=== PATIENT | female | born 1975 | race Caucasian/White ===

== ENCOUNTER 2017-06-20 08:41 | Day surgery (SDC) | payer MEDICARE, OTHER, SELFPAY ==
[2017-06-19 15:17] VITALS: BMI 26.9
[2017-06-20 09:07] VITALS: BP 122/59; PULSE 75; RESP 18; TEMP 36.4; O2SAT 98
[2017-06-20 09:12] LABS: Urine Pregnancy, HCG Qual. Negative (Negative)
--- NOTE | 2017-06-20 09:37 | P.PN_ITS ---
[facility] Anesthesia Checklist - Structural Data Admitted From: Home Planned Operative Procedure/s: colonoscopy Consent for Planned Operative Procedure(s) Verified: Yes Verified Documents: Surgical Consent - Airway Assessment C-Spine Mobility Assessed: Yes TMJ Mobility Assessed: Yes Dentition: Good Dentition - Neurological Assessment Level of Consciousness: Awake, Alert - Anesthesia Plan Anesthesia Risk discussed: Yes Anesthesia Plan: Verified ASA Class: II Anesthesia Type: MAC [facility] Anesthesia HX I have reviewed the patient's past medical history: Yes Medical History: Reports:: Lung Disease (emphysema) Denies:: Diabetes Mellitus Type 1, Diabetes Mellitus Type 2, Internal Pacemaker, Seizures Other Surgeries: No: Pacemaker
[2017-06-20 10:48] VITALS: O2SAT 98
[2017-06-20 11:21] VITALS: BP 90/39; PULSE 64; RESP 20; TEMP 36.3; O2SAT 98
--- NOTE | 2017-06-20 11:25 | P.PCN_ITS ---
- Procedure: Date: 06/20/17 Procedure Performed:: Total colonoscopy to terminal ileum with polypectomy Indications:: 42-year-old white female. [place] resident. Referred by Dr. Bal for rectal bleeding and possible hemorrhoids. No evidence of any external hemorrhoids on examination. She did have a prior colonoscopy about 6 years ago in [place]. Plan was made for colonoscopy. Performing Provider:: Malick Tan MD Referring Provider:: Valeriano Sedation:: Propofol Procedure:: Patient was taken to same-day surgery endoscopy procedure room. Adequate intravenous sedation was achieved. Variable stiffness Olympus colonoscope was inserted via the anus and advanced to the cecum without significant difficulty. Ileocecal valve and appendiceal orifice were clearly identified. Colonoscope was advanced into the terminal ileum which appeared grossly normal. Colonoscope was withdrawn through the colon with careful surveillance. There was a diminutive subtle ridge polyp in the descending colon removed with cold snare followed by cold biopsy forceps. Within the sigmoid colon there is a very subtle appearing polyp removed well. Within the rectum there is some mild proctitis but this appeared to be minimal and likely secondary to bowel preparation. Retroflexion revealed nonbleeding internal hemorrhoids which appeared to be rather nonpathologic at this time. Colonoscope was withdrawn. Findings:: Internal hemorrhoids Subtle small diminutive polyps Faint minuscule proctitis Recommendations:: Likely repeat colonoscopy in 5 years. Bleeding which has been ongoing for about 3 years may be secondary to intermittent hemorrhoid flare up which would likely be amenable to fiber and occasional suppositories. Complications:: None Estimated blood obtained (mL): 3
[2017-06-20 11:31] VITALS: BP 107/66; PULSE 64; RESP 20; TEMP 36.3; O2SAT 99
[2017-06-20 11:41] VITALS: BP 116/68; PULSE 72; RESP 20; TEMP 36.3; O2SAT 98
[2017-06-20 11:52] VITALS: BP 104/73; PULSE 72; RESP 20; TEMP 36.3; O2SAT 98
== END 2017-06-20 11:52 | disposition home or self-care (01) ==
PROVIDERS: PCP Emergency Medicine; Visit Provider Surgery
PROC: 0DJD8ZZ Inspection of Lower Intestinal Tract, Via Natural or Artificial Opening Endoscopic (ICD-10-PCS; principal; 2017-06-20 09:05)
DX: K63.5 Polyp of colon (principal); K64.0 First degree hemorrhoids; K62.89 Other specified diseases of anus and rectum
CPT/HCPCS: 45380; 81025; 88305

== ENCOUNTER → 2017-06-22 09:15 | Outpatient (CLI) | payer MEDICARE, OTHER, SELFPAY ==
--- NOTE | 2017-06-22 09:16 | XR_ITS ---
Right Weightbearing Ankle 3 views. HISTORY: Pain, fracture/dislocation ORDERING PHYSICIAN: Samantha Baum DPM PATIENT AGE: 42 years COMPARISON: None FINDINGS: No fracture or dislocation. No lytic or blastic change. There is normal mineralization.. The joint spaces are well-preserved. No significant degenerative/arthritic changes. No erosive changes evident. There are mild hypertrophic changes along the anterior distal tibia IMPRESSION: 1. No acute finding. 2. Mild spurring along the anterior distal tibia
== END ==
PROVIDERS: Visit Provider Podiatrist
DX: T14.8XXA Other injury of unspecified body region, initial encounter (principal); S93.491A Sprain of other ligament of right ankle, initial encounter; S82.831A Other fracture of upper and lower end of right fibula, initial encounter for closed fracture; M25.571 Pain in right ankle and joints of right foot
CPT/HCPCS: 73610

== ENCOUNTER → 2017-07-20 11:44 | Outpatient (CLI) | payer MEDICARE, MEDICAID, SELFPAY ==
--- NOTE | 2017-07-20 11:45 | XR_ITS ---
XR ankle wt bearing RT min 3V CLINICAL INDICATION: Medial ankle pain ORDERING PHYSICIAN: Samantha Baum DPM PATIENT AGE: 42 years COMPARISON: 06/22/2017 FINDINGS: There remains spurring along the anterior aspect of the distal tibia and along the neck of the talus anteriorly. The ankle joint space is well-preserved. No acute fracture or dislocation. IMPRESSION: Overall no change spurring of the anterior distal tibia with no acute finding
== END ==
PROVIDERS: Visit Provider Podiatrist
DX: M25.571 Pain in right ankle and joints of right foot (principal)
CPT/HCPCS: 73610

== ENCOUNTER → 2018-07-18 10:50 | Outpatient (CLI) | payer MEDICARE, OTHER, SELFPAY ==
[2018-07-18 13:19] LABS: Free Thyroxine Index 2.9 ug/dL (5.93-13.13); T4 (Thyroxine) 8.4 ug/dl (4.7-13.3); Thyroid Stimulating Hormone 0.37 uIU/ml (0.358-3.740); Triiodothryronine (T3) Uptake 34 % (31-39)
[2018-07-19 09:22] LABS: Estradiol 13.1 pg/mL (.); FSH 35.5 mIU/mL (.); LH 10.2 mIU/mL (.)
== END ==
PROVIDERS: Visit Provider Nurse Practitioner Obstetrics & Gynecology
DX: Z01.419 Encounter for gynecological examination (general) (routine) without abnormal findings (principal); E03.9 Hypothyroidism, unspecified
CPT/HCPCS: 36415; 82670; 83001; 83002; 84436; 84443; 84479

== ENCOUNTER → 2018-08-08 09:54 | Outpatient (CLI) | payer MEDICARE, OTHER, SELFPAY ==
--- NOTE | 2018-08-08 09:56 | MM_ITS ---
MM Dig screening mamm BI w/CAD CAD Screening COMPARISON: None, this is baseline INDICATION: There is no personal or family history of breast cancer TECHNIQUE: Standard CC and MLO images were obtained. R2 CAD reviewed. FINDINGS: Moderate diffuse fibroglandular densities are seen in both breast slightly more prominent right breast than left. There are couple benign-appearing microcalcifications left breast. There is no suspicious lesion and there are no suspicious microcalcifications. IMPRESSION: Moderate breast density with no suspicious lesion seen BI-RADS Category: 2 Benign Finding(s) RECOMMENDED FOLLOW-UP: 1YR - 1 YEAR FOLLOW-UP (A letter has been sent to the patient regarding results of the study.)
== END ==
PROVIDERS: PCP Emergency Medicine; Visit Provider Nurse Practitioner Obstetrics & Gynecology
DX: Z12.31 Encounter for screening mammogram for malignant neoplasm of breast (principal)
CPT/HCPCS: 77067

== ENCOUNTER 2021-01-18 09:32 | Emergency (ER) | payer MEDICARE, MEDICAID, SELFPAY ==
[2021-01-18 09:34] VITALS: BP 128/76; PULSE 115; RESP 20; TEMP 36.5; O2SAT 94; BMI 35.2
--- NOTE | 2021-01-18 09:38 | XR_ITS ---
PROCEDURE: XR CHEST PORTABLE CLINICAL HISTORY: cough Dyspnea, COVID positive COMPARISON: CR XR CHEST 2V from 11/30/2018 FINDINGS: The study is limited due to attenuation of x-ray beam by generous overlying soft tissues. Cardiomediastinal silhouette is not enlarged. There is no definite pleural fluid. Mediastinal structures are midline. Osseous structures and soft tissues to the extent visualized appear unremarkable. The lungs are clear without infiltrates, suspicious nodules, or pleural effusions. No acute bony abnormalities. IMPRESSION: No definite acute findings though study is limited by magnitude of overlying soft tissues. Dictated by: Toyin Del Valle MD 01/18/2021 14:37 Toyin Del Valle MD in [place] 01/18/2021 14:37
[2021-01-18 09:46] LABS: Coronavirus 19, PCR Not Detected (NotDetected); Influenza A, PCR Not Detected (NotDetected); Influenza B, PCR Not Detected (NotDetected)
--- NOTE | 2021-01-18 10:02 | HMH.EDGENADL ---
ED Disposition Clinical Impression: Gastroenteritis UTI (urinary tract infection) Qualifiers: Urinary tract infection type: acute cystitis Hematuria presence: with hematuria Qualified Code(s): N30.01 - Acute cystitis with hematuria Disposition: Home, Self-Care Condition on Discharge: Good Instructions: Urinary Tract Infection Prescriptions: Nitrofurantoin Monohyd/M-Cryst [Macrobid 100 mg Capsule] 100 mg PO BID 10 Days #20 cap Transmission Status: Pending to [facility] Referrals: Mani Bal MD [Primary Care Provider] - - Critical Care Critical Care Time: No Attestation: On 01/18/21, the high probability of a clinically significant, sudden or life threatening deterioration of the following system(s) required my full and direct attention, intervention and personal management. The time I documented below is in addition to time spent performing reported procedures but includes the following listed in this critical care notation. Medical Decision Making - Medical Records Medical records reviewed: Yes: I reviewed the patient's medical records. - Jayy Inquiry Pt receiving controlled substance: No Vital Signs: 01/18/21 09:34 01/18/21 10:31 Temperature 97.7 F Temperature Source Oral Pulse Rate 93 H Pulse Rate [Left Radial] 115 H Respiratory Rate 20 Blood Pressure 113/75 Blood Pressure [Right Arm] 128/76 Blood Pressure Mean 86 Blood Pressure Mean [Right Arm] 93 Blood Pressure Source [Right Arm] Automatic Cuff Blood Pressure Position [Right Arm] Sitting 02 Sat by Pulse Oximetry 94 L 93 L Oxygen Delivery Method Room Air - Lab Data Lab Results 01/18/21 09:40: SARS-CoV-2 (PCR) Not detected, Influenza A Untype (PCR) Not detected, Influenza Type B (PCR) Not detected 01/18/21 10:05: WBC 10.2, RBC 4.56, Hgb 14.4, Hct 43.8, MCV 96.0, MCH 31.5 H, MCHC 32.8, RDW 14.2, Plt Count 287, MPV 8.9, Neut % (Auto) 69.8, Lymph % (Auto) 21.5, [place] % (Auto) 5.3, Eos % (Auto) 1.5, Baso % (Auto) 2.0, Neut # (Auto) 7.1, Lymph # (Auto) 2.2, [place] # (Auto) 0.5, Eos # (Auto) 0.2, Baso # (Auto) 0.2 01/18/21 10:05: Sodium 138, Potassium 4.0, Chloride 98, Carbon Dioxide 30, Anion Gap 14.0, BUN 6 L, Creatinine 0.60, Estimated Creat Clear 176, Estimated GFR 107, Est GFR ( Amer) 130, Glucose 324 H, Calcium 9.2, Total Bilirubin 0.3, AST 25, ALT 24, Alkaline Phosphatase 132 H, Total Protein 7.2, Albumin 3.8, Globulin 3.4 H, Albumin/Globulin Ratio 1.1 01/18/21 10:05: Lipase 36 01/18/21 12:30: Urine Color Yellow, Urine Appearance Clear, Urine pH 7.5, Ur Specific [place] 1.015, Urine Protein Negative, Urine Glucose (UA) 3+, Urine Ketones Negative, Urine Blood 1+, Urine Nitrate Negative, Urine Bilirubin Negative, Urine Urobilinogen 0.2, Ur Leukocyte Esterase 2+ A, Urine RBC Occasional, Urine WBC 5-10, Ur Squamous Epith Cells None, Urine Bacteria Trace Result diagrams: 01/18/21 10:05 01/18/21 10:05 Orders (Tests/Meds): ED MEDICATIONS Discontinued Medications Generic Name Dose Route Start Last Admin Trade Name Freq PRN Reason Stop Dose Admin Diphenhydramine HCl 25 mg 01/18/21 09:38 01/18/21 09:52 Diphenhydramine 50mg/Ml Vial IV 01/18/21 09:39 25 mg ONCE ONE Administration Sodium Chloride 1,000 mls @ 999 mls/hr 01/18/21 09:45 01/18/21 09:52 Sod Chlor 0.9% 1000ml Bag IV 01/18/21 10:45 999 mls/hr .Q1H1M ANTONIO Administration Ondansetron HCl 4 mg 01/18/21 09:38 01/18/21 09:52 Ondansetron 4mg/2ml Vial IV 01/18/21 09:39 4 mg ONCE ONE Administration ORDERS Category Date Time Status XR chest portable Stat Exams 01/18/21 09:38 Taken Urine Culture Stat Micro 01/18/21 12:30 Received - Radiology Data #1 Image(s): Chest Image Reviewed: Yes I reviewed the patient's radiology results, Yes I reviewed the patient's radiology image Preliminary Findings: Normal/NAD - Reevaluation(s) Time: 12:59 Reevaluation #1: On reevaluation, the patient is feeling better. Hemod
[2021-01-18 10:16] LABS: Basophils # 0.2 K/mm3 (0-0.2); Eosinophils # 0.2 K/mm3 (0.0-0.4); Eosinophils % 1.5 % (0.1-12.0); Hematocrit 43.8 % (37.0-47.0); Hemoglobin 14.4 g/dL (12.2-16.2); Lymphocytes # 2.2 K/mm3 (0.7-4.5); Lymphocytes % 21.5 % (10-50); Mean Corpuscular HGB Conc 32.8 g/dL (31.8-35.4); Mean Corpuscular Hemoglobin 31.5 pg (27.0-31.2); Mean Platelet Volume 8.9 fl (7.4-10.4); Monocytes # 0.5 K/mm3 (0.1-1.0); Monocytes % 5.3 % (1.7-9.3); Neutrophils # 7.1 K/mm3 (1.8-7.8); Neutrophils % 69.8 % (37.0-80.0); Platelet Count 287 K/mm3 (142-424); Red Blood Count 4.56 M/mm3 (4.20-5.40); Red Cell Distribution Width 14.2 % (11.5-17.5); White Blood Count 10.2 K/mm3 (4.8-10.8)
[2021-01-18 10:20] LABS: Chloride 98 mmol/L (98-107); Sodium 138 mmol/L (136-145)
[2021-01-18 10:23] LABS: Alanine Aminotransferase 24 U/L (12-78); Albumin Level 3.8 g/dl (3.5-5.0); Albumin/Globulin Ratio 1.1 (1.1-1.8); Alkaline Phosphatase 132 U/L (38-126); Aspartate Amino Transferase 25 U/L (14-36); Bilirubin,Total 0.3 mg/dl (0.2-1.3); Blood Urea Nitrogen 6 mg/dl (7-17); Carbon Dioxide 30 mmol/L (22.0-30.0); Creatinine Clearance Estimated 176 mL/min (50-200); Estimated Glomerular Filt Rate 107 ml/min (>60); GFR (African American) 130 ML/MIN (>60); Globulin 3.4 g/dL (1.3-3.2); Total Protein,Serum 7.2 g/dl (6.3-8.2)
[2021-01-18 10:24] LABS: Calcium 9.2 mg/dl (8.4-10.2); Glucose 324 mg/dl (74-100); Lipase 36 U/L (23-300)
[2021-01-18 10:31] VITALS: BP 113/75; PULSE 93; O2SAT 93
[2021-01-18 11:01] VITALS: BP 99/60; PULSE 83; O2SAT 95
[2021-01-18 11:31] VITALS: BP 126/78; PULSE 85; O2SAT 94
[2021-01-18 12:01] VITALS: BP 119/59; PULSE 86; O2SAT 93
[2021-01-18 12:37] LABS: Microscopic, Urine URINE MICROSCOPIC (MICROSCOPIC)
[2021-01-18 12:39] LABS: Appearance,Urine CLEAR (Clear); Bilirubin,Urine Negative (Negative); Blood, Urine 1+ (Negative); Color,Urine YELLOW (Yellow); Glucose,Urine (UA) 3+ (Negative); Ketones,Urine Negative (Negative); Leukocyte Esterase,Urine 2+ (Negative); Nitrate,Urine Negative (Negative); PH,Urine 7.5 (5.0-8.5); Protein,Urine Negative (Negative); Specific Gravity, Urine 1.015 (1.005-1.030); Urobilinogen,Urine 0.2 EU/dl (0.2)
[2021-01-18 12:55] LABS: Bacteria,Urine Trace /lpf; RBC,Urine Occasional #/hpf (0-3)
[2021-01-18 13:19] VITALS: BP 119/59; PULSE 86; RESP 16; TEMP 36.5; O2SAT 93
== END 2021-01-18 13:23 | disposition home or self-care (01) ==
PROVIDERS: Emergency Provider Emergency Medicine; PCP Emergency Medicine
DX: N30.01 Acute cystitis with hematuria (principal); K52.9 Noninfective gastroenteritis and colitis, unspecified; F41.8 Other specified anxiety disorders; E03.9 Hypothyroidism, unspecified; F17.210 Nicotine dependence, cigarettes, uncomplicated; Z20.822 Contact with and (suspected) exposure to COVID-19
CPT/HCPCS: 71045; 80053; 81001; 83690; 85025; 87086; 96365; 96375; 99283; C9803; J2405; U0003; U0005

== ENCOUNTER → 2022-01-01 09:12 | Outpatient (CLI) | payer MEDICARE, MEDICAID, SELFPAY ==
[2022-01-01 09:27] LABS: Adenovirus F 40/41, stool Not Detected (NotDetected); Astrovirus Not Detected (NotDetected); Campylobacter Not Detected (NotDetected); Clostridium Difficile A/B, PCR Not Detected (NotDetected); Cryptosporidium Not Detected (NotDetected); Cyclospora Cayetanesis Not Detected (NotDetected); Entamoeba histolytica Not Detected (NotDetected); Enteroaggregative E coli Not Detected (NotDetected); Enteropathogenic E coli Not Detected (NotDetected); Enterotoxigenic E coli Not Detected (NotDetected); Giardia lamblia Not Detected (NotDetected); Norovirus Not Detected (NotDetected); Plesimonas Shigalloides, PCR Not Detected (NotDetected); Rotavirus A Not Detected (NotDetected); Salmonella, PCR Not Detected (NotDetected); Sapovirus Not Detected (NotDetected); Shiga-like toxin E coli Not Detected (NotDetected); Shigella Enterovasive E coli Not Detected (NotDetected); Vibrio Cholerae Not Detected (NotDetected); Vibrio, PCR Not Detected (NotDetected); Yersinia Entercolitica, PCR Not Detected (NotDetected)
== END ==
PROVIDERS: PCP Emergency Medicine; Visit Provider Emergency Medicine
DX: R19.7 Diarrhea, unspecified (principal)
CPT/HCPCS: 87506

== ENCOUNTER → 2022-01-01 11:08 | Outpatient (CLI) | payer MEDICARE, MEDICAID, SELFPAY ==
[2022-01-01 13:18] LABS: Basophils # 0.2 K/mm3 (0-0.2); Basophils % 1.6 % (0.1-2.0); Eosinophils # 0.5 K/mm3 (0.0-0.4); Eosinophils % 5.1 % (0.1-12.0); Hematocrit 41.5 % (37.0-47.0); Hemoglobin 13.5 g/dL (12.2-16.2); Lymphocytes # 3.4 K/mm3 (0.7-4.5); Lymphocytes % 32.7 % (10-50); Mean Corpuscular HGB Conc 32.6 g/dL (31.8-35.4); Mean Corpuscular Hemoglobin 30.2 pg (27.0-31.2); Mean Corpuscular Volume 92.7 fl (81-99); Mean Platelet Volume 8.4 fl (7.4-10.4); Monocytes # 0.7 K/mm3 (0.1-1.0); Monocytes % 6.9 % (1.7-9.3); Neutrophils # 5.5 K/mm3 (1.8-7.8); Neutrophils % 53.6 % (37.0-80.0); Platelet Count 245 K/mm3 (142-424); Red Blood Count 4.48 M/mm3 (4.20-5.40); Red Cell Distribution Width 13.6 % (11.5-17.5); White Blood Count 10.3 K/mm3 (4.8-10.8)
[2022-01-01 13:28] LABS: Albumin Level 3.8 g/dl (3.5-5.0); Albumin/Globulin Ratio 1.4 (1.1-1.8); Anion Gap 15.8 mEq/L (5-15); Blood Urea Nitrogen 5 mg/dl (7-17); Carbon Dioxide 29 mmol/L (22.0-30.0); Chloride 98 mmol/L (98-107); Cholesterol 161 mg/dl (140-200); Globulin 2.8 g/dL (1.3-3.2); Glucose 160 mg/dl (74-100); Potassium 3.8 mmoL/L (3.5-5.1); Sodium 139 mmol/L (136-145); Total Protein,Serum 6.6 g/dl (6.3-8.2); Triglycerides 250 mg/dl (30-150); VLDL Cholesterol 50 mg/dL (0-40)
[2022-01-01 13:29] LABS: Alanine Aminotransferase 32 U/L (12-78); Alkaline Phosphatase 139 U/L (38-126); Aspartate Amino Transferase 32 U/L (14-36); Bilirubin,Total 0.2 mg/dl (0.2-1.3); Calcium 8.9 mg/dl (8.4-10.2); Chol/HDL Ratio 4.5 (1-3.5); Estimated Glomerular Filt Rate 89 ml/min (>60); GFR (African American) 108 ML/MIN (>60); HDL Cholesterol 36 mg/dl (40-60)
[2022-01-01 13:39] LABS: Direct LDL Cholesterol 90.49 mg/dL (100-129)
[2022-01-01 14:00] LABS: Thyroid Stimulating Hormone 3.51 uIU/mL (0.465-4.68)
[2022-01-04 13:02] LABS: Free Valproic Acid (Depakote) 31.8
== END ==
PROVIDERS: PCP Emergency Medicine; Visit Provider Emergency Medicine
DX: F31.0 Bipolar disorder, current episode hypomanic (principal); R19.7 Diarrhea, unspecified
CPT/HCPCS: 36415; 80053; 80061; 80165; 84443; 85025; 87506

== ENCOUNTER → 2023-03-06 15:57 | Outpatient (CLI) | payer MEDICARE, MEDICAID, SELFPAY ==
--- NOTE | 2023-03-06 15:58 | MM_ITS ---
PROCEDURE INFORMATION: Exam: Bilateral Screening 3D Mammography Exam date and time: 03/06/2023 3:50 PM Age: 47 years old Clinical indication: Screening examination TECHNIQUE: Imaging protocol: Bilateral Screening tomosynthesis and 2D mammography including computer-aided detection (CAD) when performed. COMPARISON: DIG MAMM-SCREEN SHANAE 08/08/2018 10:04 AM FINDINGS: MAMMOGRAPHY: Breast composition: There are scattered areas of fibroglandular density. Mass: None. Architectural distortion: None. Calcifications: No suspicious calcifications. Asymmetric density: None. Skin thickening: None. Axillary adenopathy: None. IMPRESSION: No mammographic evidence of malignancy. Annual screening is recommended unless otherwise clinically indicated. ASSESSMENT: BI-RADS Category 1: Negative
== END ==
PROVIDERS: PCP Emergency Medicine; Visit Provider Emergency Medicine
DX: Z12.31 Encounter for screening mammogram for malignant neoplasm of breast (principal)
CPT/HCPCS: 77063; 77067

== ENCOUNTER 2024-07-25 12:54 | Outpatient (CLI) | payer MEDICARE, MEDICAID, SELFPAY ==
--- NOTE | 2024-07-25 13:01 | MM_ITS ---
PROCEDURE INFORMATION: Exam: MG Bilateral Screening 3D Mammography Exam date and time: 07/25/2024 1:08 PM Age: 49 years old Clinical indication: Screening examination TECHNIQUE: Imaging protocol: Bilateral Screening tomosynthesis and 2D mammography including computer-aided detection (CAD) when performed. COMPARISON: 1. MG MM DIG SCREENING MAMM BI W/CAD 03/06/2023 3:50 PM 2. MG DIG MAMM-SCREEN SHANAE 08/08/2018 10:04 AM FINDINGS: MAMMOGRAPHY: Breast composition: There are scattered areas of fibroglandular density. Mass: None. Architectural distortion: None. Calcifications: No suspicious calcifications. Asymmetric density: None. Skin thickening: None. Axillary adenopathy: None. IMPRESSION: No mammographic evidence of malignancy. Annual screening is recommended unless otherwise clinically indicated. ASSESSMENT: BI-RADS Category 1: Negative.
== END 2024-07-25 23:59 | disposition home or self-care (01) ==
LOC: RAD 12:56
PROVIDERS: Visit Provider Nurse Practitioner Family
DX: Z12.31 Encounter for screening mammogram for malignant neoplasm of breast (principal)
CPT/HCPCS: 77063; 77067

== ENCOUNTER 2024-12-25 22:36 | Emergency (ER) | payer MEDICARE, MEDICAID, SELFPAY ==
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
[2024-12-25 22:14] VITALS: BP 103/59; PULSE 100; RESP 18; TEMP 36.7; O2SAT 94; BMI 26.6
--- NOTE | 2024-12-25 22:24 | HMH.EDGENADL ---
Discharge Plan Disposition Patient Disposition: Home, Self-Care Prescriptions Prescriptions: No Action hydrocortisone acetate 25 mg suppository 25 mg LA BID Qty: 24 3RF hydrocortisone 1 % cream with perineal applicator 1 applic LA BID Qty: 28.4 3RF atorvastatin 20 mg tablet 20 mg PO ONCE bupropion HCl 150 mg tablet extended release 24 hr 150 mg PO DAILY divalproex 500 mg tablet,delayed release (DR/EC) 500 mg PO TID famotidine 20 mg tablet 20 mg PO DAILY polyethylene glycol 3350 [Gavilax] 17 gram/dose powder 17 g PO DAILY haloperidol 5 mg tablet 5 mg PO BID Invega Sustenna 234 mg/1.5 mL syringe 234 mg IM Q30D levothyroxine 200 mcg capsule 200 mcg PO DAILY quetiapine 200 mg tablet 200 mg PO DAILY quetiapine 50 mg tablet 50 mg PO DAILY prazosin 2 mg capsule 2 mg PO HS quetiapine 200 mg tablet 200 mg PO HS oxybutynin chloride 10 mg tablet extended release 24hr 10 mg PO DAILY mirtazapine 30 mg tablet 30 mg PO HS mirtazapine 30 MG tablet 30 mg PO HS PRN (Reason: Insomnia) nitrofurantoin monohyd/m-cryst 100 MG capsule 100 mg PO BID 10 Days Qty: 20 0RF Referrals Follow up/Referrals: Provider,Referral, MD [Primary Care Provider, Medical] - See instructions Activity Restrictions/Add. Instructions Additional Instructions/Restrictions: No evidence of abnormality noted on extensive ER workup. Clinical Impressions Clinical Impression: AMS (altered mental status) Qualifiers: Altered mental status type: somnolence Qualified Code(s): R40.0 - Somnolence Instructions Patient Instructions: DI for Altered Mental Status Print Language Print Language: Angolan Discharge ED Provider: Donny Baron General Adult HPI <Dorota Salazar DO - Last Filed: 12/26/24 01:49> General Chief complaint: Altered Mental Status Stated complaint: Altered Mental Status Time Seen by Provider: 12/25/24 22:44 Mode of Arrival: EMS Source of Information: EMS Description of Symptoms (Recalled from ER Triage Doc. by RN): [facility] states she took her night meds which included 2 Visteril and 1 Klonopin at 1999. She became altered, staff called EMS. Pt is very lethargic, EMS used sternal rub and ammonia to arrouse at scene. She was 89% on scene no daily oxygen used, placed on 2l/nc History of Present Illness HPI narrative: Patient is a 49-year-old female with medical problems that include high cholesterol, psychiatric medical problems who presents to the emergency department with altered mental status. Patient arrives from [facility] and was told that she was given Klonopin and 2 Vistaril before bed and patient became altered and called EMS. Per [facility], patient typically does only take 1 Vistaril at night but requested two. Patient became more altered was unable to respond to questions and was not responsive to sternal rub therefore she was sent here. On arrival, patient was newly hypoxic, borderline hypotensive patient was placed on 4 L nasal cannula. On arrival, patient was unable to tell me her name or any of her medical problems. Patient was alert to sternal rub but would quickly fall back asleep. Related Data Home Medications ?Medication ?Instructions ?Recorded ?Confirmed atorvastatin 20 mg tablet 20 mg PO ONCE Cholesterol 06/12/17 03/02/21 mirtazapine 30 mg tablet 30 mg PO HS PRN Insomnia 11/30/18 03/02/21 bupropion HCl 150 mg 24 hr tablet, 150 mg PO DAILY 01/05/21 03/02/21 extended release divalproex 500 mg tablet,delayed 500 mg PO TID 01/05/21 03/02/21 release famotidine 20 mg tablet 20 mg PO DAILY 01/05/21 03/02/21 haloperidol 5 mg tablet 5 mg PO BID 01/05/21 03/02/21 levothyroxine 200 mcg capsule 200 mcg PO DAILY 01/05/21 03/02/21 paliperidone palmitate 234 mg/1.5 234 mg IM Q30D 01/05/21 03/02/21 mL intramuscular syringe (Invega Sustenna) polyethylene glycol 3350 17 17 g PO DAILY 01/05/21 03/02/21 gram/dose oral powder (Gavilax) quetiapine 200 mg tablet 200 mg PO DAILY 01/05/21 03/02/21 quetiapine 50 mg tablet 50 mg PO DAILY 01/05/21 03/02/21 mirtazapine 30 mg tablet 30 mg PO HS 03/02/21 03/02/21 oxybutynin chloride 10 mg 10 mg PO DAILY 03/02/21 03/02/21 tablet,extended release 24 hr prazosin 2 mg capsule 2 mg PO HS 03/02/21 03/02/21 quetiapine 200 mg tablet 200 mg PO HS 03/02/21 03/02/21 Previous Rx's ?Medication ?Instructions ?Recorded hydrocortisone 1 % topical cream 1 applic LA BID #28.4 grams 04/19/19 with perineal applicator hydrocortisone acetate 25 mg 25 mg LA BID #24 ea 04/19/19 rectal suppository nitrofurantoin 100 mg PO BID 10 days #20 caps 01/18/21 monohydrate/macrocrystals 100 mg capsule Allergies Allergy/AdvReac Type Severity Reaction Status Date / Time codeine Allergy Intermediate Hives Verified 03/02/21 09:35 hydrocodone Allergy Unknown Verified 03/02/21 09:35 Penicillins Allergy Unknown Verified 03/02/21 09:35 codiene Allergy Unknown Uncoded 03/02/21 09:35 [facility] <Dorota Salazar DO - Last Filed: 12/26/24 01:49> [facility] Disclaimer: The information contained in this section may have been updated after the patient was seen, as this information can be updated by other users. Social History (System 09/26/17 @ 09:45 by Alessandra Koch) Smoking Status: Unknown if ever smoked alcohol intake: never substance use type: denies use current occupational status: disabled Travel in the last 8 weeks?: None household members: caregiver housing: assisted living facility caffeine: Yes Have you lived/traveled outside US in past 30 days?: No Contact w/someone who lives/traveled outside US past 30 days?: No Exposure to someone with infectious disease in past 14 days?: No Do you have a fever (greater than 100.4 F or 38 C)?: No Have you tested positive for COVID-19?: No Exposed to someone with COVID-19 in past 14 days?: No Do you have a sore throat?: No Do you have a cough?: No Do you have any weakness?: No Do you have any diarrhea?: No Are you experiencing any unusual bleeding?: No Do you have any muscle aches/pain?: No Do you have any abdominal pain?: No Are you experiencing loss of taste or smell?: No Other Medical History Have you received the Flu Vaccine for this season: No Have you received the Pneumonia Vaccine: Yes <Dorota Salazar, DO - Last Filed: 12/26/24 01:49> ROS Obtained: Yes All systems reviewed & no additional complaints except as documented and Yes Systems reviewed as appropriate & no additional complaints except as documented Physical Exam <Dorota Salazar, DO - Last Filed: 12/26/24 01:49> General General appearance: alert and in no apparent distress Head Head exam: atraumatic, normocephalic and normal inspection Eye Eye exam: Present normal appearance, PERRL, EOMI and other (pupils 3 mm and reactive bilaterally); Absent scleral icterus ENT ENT exam: Present normal exam and normal external ear exam Neck Neck exam: Present normal inspection and full ROM Chest Chest inspection: Present normal inspection and symmetric chest wall rise Respiratory Respiratory exam: Present normal lung sounds bilaterally; Absent respiratory distress or wheezes Cardiovascular Cardiovascular exam: Present regular rate, normal rhythm and normal heart sounds Abdominal Exam Abdominal exam: Present soft and distention; Absent tenderness, guarding or rebound Extremities Exam Extremities exam: Present normal inspection and full ROM Back Exam Back exam: Present normal inspection and full ROM Neurological Exam Neurological exam: Present alert and other (Patient was alert and oriented x 1, patient had no focal deficits was spontaneously moving all extremities) Psychiatric Psychiatric exam: Present normal affect and normal mood Skin Skin exam: Present warm and dry Medical Decision Making <Dorota MartinDO - Last Filed: 12/26/24 01:49> Medical Records Screening: Per USPSTF and CDC recommendations, given the prevalence of disease in our region, it is our hospital?s policy to screen for HIV and viral Hepatitis for all patients aged 18 and over and those with ongoing risk factors. Jayy Inquiry Pt receiving controlled substance: No Vital Signs: 12/25/24 22:14 12/25/24 22:30 12/26/24 07:10 Temperature 98.1 F 98 F Temperature Source Axillary Pulse Rate 100 H 92 H Pulse Rate [Left] 100 H Respiratory Rate 18 29 H 14 Blood Pressure 103/59 L 139/74 Blood Pressure [Right Arm] 103/59 L Blood Pressure Mean [Right Arm] 73 Blood Pressure Source Automatic Cuff Blood Pressure Source [Right Arm] Automatic Cuff Blood Pressure Position [Right Arm] Sitting 02 Sat by Pulse Oximetry 94 L 100 99 Oxygen Delivery Method Nasal Cannula Oxygen Flow Rate (LPM) 2 12/26/24 08:11 Temperature 98 F Temperature Source Pulse Rate 99 H Pulse Rate [Left] Respiratory Rate 16 Blood Pressure 142/77 H Blood Pressure [Right Arm] Blood Pressure Mean [Right Arm] Blood Pressure Source Blood Pressure Source [Right Arm] Blood Pressure Position [Right Arm] 02 Sat by Pulse Oximetry Oxygen Delivery Method Oxygen Flow Rate (LPM) Lab Data Lab results reviewed: Yes I reviewed the patient's lab results. Lab Results 12/25/24 00:05: VBG pH 7.39, VBG pCO2 40.6, VBG pO2 95.0 H, VBG HCO3 24.2, VBG Total CO2 25.4, VBG O2 Saturation 96.6 H, VBG Base Excess -0.7, VBG Lactic Acid 1.6 12/25/24 22:04: WBC 15.2 H, RBC 4.19 L, Hgb 12.0 L, Hct 36.7 L, MCV 87.6, MCH 28.6, MCHC 32.7, RDW 13.7, Plt Count 238, MPV 10.4, Neut % (Auto) 70.2, Lymph % (Auto) 19.2, [place] % (Auto) 7.9, Eos % (Auto) 1.1, Baso % (Auto) 0.5, Neut # (Auto) 10.7 H, Lymph # (Auto) 2.9, [place] # (Auto) 1.2 H, Eos # (Auto) 0.2, Baso # (Auto) 0.1, PT 11.5, INR 1.04, Sodium 136, Potassium 3.6, Chloride 102, Carbon Dioxide 24, Anion Gap 13.6, BUN 11, Creatinine 0.70, Estimated Creat Clear 109, Estimated GFR 88, Est GFR ( Amer) 107, Glucose 233 H, Calcium 8.9, Total Bilirubin 0.5, AST 21, ALT 29, Alkaline Phosphatase 136 H, Troponin I < 0.01, Total Protein 6.2 L, Albumin 3.6, Globulin 2.6, Albumin/Globulin Ratio 1.4, Lipase 38, Salicylates < 1.0 L, Acetaminophen < 10 L 12/26/24 00:05: Urine Color Yellow, Urine Appearance Clear, Urine pH 6.0, Ur Specific [place] 1.010, Urine Protein Negative, Urine Glucose (UA) 3+, Urine Ketones Negative, Urine Blood Negative, Urine Nitrate Negative, Urine Bilirubin Negative, Urine Urobilinogen 0.2, Ur Leukocyte Esterase Negative, Urine RBC None, Urine WBC None, Ur Squamous Epith Cells Occasional, Urine Bacteria None, Urine Opiates Screen Negative, Urine Methadone Screen Negative, Ur Barbituates Screen Negative, Ur Phencyclidine Scrn Negative, Ur Amphetamines Screen Negative, U Benzodiazepines Scrn Negative, Urine Cocaine Screen Negative, U Marijuana (THC) Screen Positive H 12/25/24 22:04 12/25/24 22:04 Orders (Tests/Meds): ED MEDICATIONS Discontinued Medications Generic Name Dose Route Start Last Admin Trade Name Freq PRN Reason Stop Dose Admin Sodium Chloride 1,000 mls @ 999 mls/hr 12/25/24 22:31 12/26/24 00:56 Sod Chlor 0.9% 1000ml Bag IV 12/25/24 23:31 Infused .Q1H1M ONE Infusion Iopamidol 70 ml 12/25/24 23:16 12/25/24 23:17 Iopamidol-370 (76%);100ml Bottle IV 12/25/24 23:17 70 ml ONCE ONE Administration Sodium Chloride 50 ml 12/25/24 23:16 12/25/24 23:17 0.9 % Sodium Chloride 50 Ml Vial IV 12/25/24 23:17 50 ml ONCE ONE Administration Sodium Chloride 10 ml 12/25/24 23:16 12/25/24 23:17 Sodium Chloride 0.9% 10ml Syr (Rad Only) IV 12/25/24 23:17 10 ml ONCE ONE Administration ORDERS Category Date Time Status CT abdomen pelvis w con Stat Cat Scan 12/25/24 22:[address] angio chest PE protocol Stat Cat Scan 12/25/24 22:[address] head/brain wo con Stat Cat Scan 12/25/24 22:31 Completed Acetaminophen Stat Lab 12/26/24 01:39 Completed CBC w/Auto Diff [Complete Blood Count Auto Diff] Stat Lab 12/25/24 22:04 Completed CMP [Comprehensive Metabolic Panel] Stat Lab 12/25/24 22:04 Completed Lipase Stat Lab 12/25/24 22:04 Completed Prothrombin Time INR Stat Lab 12/25/24 22:04 Completed Salicylate Stat Lab 12/26/24 01:39 Completed Trop I [Troponin I] Stat Lab 12/25/24 22:04 Completed UA [Urinalysis and Microscopic] Stat Lab 12/26/24 00:05 Completed UDS [Drug Screen,Urine] Stat Lab 12/26/24 00:05 Completed Blood Culture Stat Micro 12/26/24 00:05 Results VBG [Venous Blood Gas] Stat RT 12/25/24 00:05 Completed EKG Request [ECG Request] Stat Y 12/25/24 22:31 Ordered Medical Decision Narrative: Patient is a 49-year-old female who presented to the emergency department from [facility] with altered mental status. On arrival, patient was mildly tachycardic, afebrile, borderline hypotensive, mildly tachycardic. Differential includes but not limited to: Overdose, intracranial pathology, pulmonary embolism, intra-abdominal process, sepsis, amongst others. Patient's labs were reviewed and interpreted by myself: CBC showed leukocytosis of 15, hemoglobin was stable. INR was normal. CMP was unremarkable except for mildly elevated glucose. Initial troponin less than 0.01. Lipase was normal. UA showed no evidence of infection. EKG was reviewed and interpreted by myself and showed normal sinus rhythm at [address] or T wave changes concerning for ischemia no QTc prolongation. CT head was reviewed and interpreted by myself and showed no acute intracranial pathology. CT chest and CT abdomen reviewed and interpreted by myself and showed no acute pathology. Patient was given IV fluids. On further reassessment, patient was more alert patient was alert and oriented x 3 but still very sleepy quickly falling asleep after questions. Patient was signed out to the oncoming provider pending further reassessment and likely discharge home once awake and alert likely secondary to medications given just prior to arrival. <Donny Baron MD - Last Filed: 12/27/24 01:55> Vital Signs: 12/25/24 22:14 12/25/24 22:30 12/26/24 07:10 Temperature 98.1 F 98 F Temperature Source Axillary Pulse Rate 100 H 92 H Pulse Rate [Left] 100 H Respiratory Rate 18 29 H 14 Blood Pressure 103/59 L 139/74 Blood Pressure [Right Arm] 103/59 L Blood Pressure Mean [Right Arm] 73 Blood Pressure Source Automatic Cuff Blood Pressure Source [Right Arm] Automatic Cuff Blood Pressure Position [Right Arm] Sitting 02 Sat by Pulse Oximetry 94 L 100 99 Oxygen Delivery Method Nasal Cannula Oxygen Flow Rate (LPM) 2 12/26/24 08:11 Temperature 98 F Temperature Source Pulse Rate 99 H Pulse Rate [Left] Respiratory Rate 16 Blood Pressure 142/77 H Blood Pressure [Right Arm] Blood Pressure Mean [Right Arm] Blood Pressure Source Blood Pressure Source [Right Arm] Blood Pressure Position [Right Arm] 02 Sat by Pulse Oximetry Oxygen Delivery Method Oxygen Flow Rate (LPM) Lab Data Lab Results 12/25/24 00:05: VBG pH 7.39, VBG pCO2 40.6, VBG pO2 95.0 H, VBG HCO3 24.2, VBG Total CO2 25.4, VBG O2 Saturation 96.6 H, VBG Base Excess -0.7, VBG Lactic Acid 1.6 12/25/24 22:04: WBC 15.2 H, RBC 4.19 L, Hgb 12.0 L, Hct 36.7 L, MCV 87.6, MCH 28.6, MCHC 32.7, RDW 13.7, Plt Count 238, MPV 10.4, Neut % (Auto) 70.2, Lymph % (Auto) 19.2, [place] % (Auto) 7.9, Eos % (Auto) 1.1, Baso % (Auto) 0.5, Neut # (Auto) 10.7 H, Lymph # (Auto) 2.9, [place] # (Auto) 1.2 H, Eos # (Auto) 0.2, Baso # (Auto) 0.1, PT 11.5, INR 1.04, Sodium 136, Potassium 3.6, Chloride 102, Carbon Dioxide 24, Anion Gap 13.6, BUN 11, Creatinine 0.70, Estimated Creat Clear 109, Estimated GFR 88, Est GFR ( Amer) 107, Glucose 233 H, Calcium 8.9, Total Bilirubin 0.5, AST 21, ALT 29, Alkaline Phosphatase 136 H, Troponin I < 0.01, Total Protein 6.2 L, Albumin 3.6, Globulin 2.6, Albumin/Globulin Ratio 1.4, Lipase 38, Salicylates < 1.0 L, Acetaminophen < 10 L 12/26/24 00:05: Urine Color Yellow, Urine Appearance Clear, Urine pH 6.0, Ur Specific [place] 1.010, Urine Protein Negative, Urine Glucose (UA) 3+, Urine Ketones Negative, Urine Blood Negative, Urine Nitrate Negative, Urine Bilirubin Negative, Urine Urobilinogen 0.2, Ur Leukocyte Esterase Negative, Urine RBC None, Urine WBC None, Ur Squamous Epith Cells Occasional, Urine Bacteria None, Urine Opiates Screen Negative, Urine Methadone Screen Negative, Ur Barbituates Screen Negative, Ur Phencyclidine Scrn Negative, Ur Amphetamines Screen Negative, U Benzodiazepines Scrn Negative, Urine Cocaine Screen Negative, U Marijuana (THC) Screen Positive H Orders (Tests/Meds): ED MEDICATIONS Discontinued Medications Generic Name Dose Route Start Last Admin Trade Name Ori PRN Reason Stop Dose Admin Sodium Chloride 1,000 mls @ 999 mls/hr 12/25/24 22:31 12/26/24 00:56 Sod Chlor 0.9% 1000ml Bag IV 12/25/24 23:31 Infused .Q1H1M ONE Infusion Iopamidol 70 ml 12/25/24 23:16 12/25/24 23:17 Iopamidol-370 (76%);100ml Bottle IV 12/25/24 23:17 70 ml ONCE ONE Administration Sodium Chloride 50 ml 12/25/24 23:16 12/25/24 23:17 0.9 % Sodium Chloride 50 Ml Vial IV 12/25/24 23:17 50 ml ONCE ONE Administration Sodium Chloride 10 ml 12/25/24 23:16 12/25/24 23:17 Sodium Chloride 0.9% 10ml Syr (Rad Only) IV 12/25/24 23:17 10 ml ONCE ONE Administration ORDERS Category Date Time Status CT abdomen pelvis w con Stat Cat Scan 12/25/24 22:[address] angio chest PE protocol Stat Cat Scan 12/25/24 22:[address] head/brain wo con Stat Cat Scan 12/25/24 22:31 Completed Acetaminophen Stat Lab 12/26/24 01:39 Completed CBC w/Auto Diff [Complete Blood Count Auto Diff] Stat Lab 12/25/24 22:04 Completed CMP [Comprehensive Metabolic Panel] Stat Lab 12/25/24 22:04 Completed Lipase Stat Lab 12/25/24 22:04 Completed Prothrombin Time INR Stat Lab 12/25/24 22:04 Completed Salicylate Stat Lab 12/26/24 01:39 Completed Trop I [Troponin I] Stat Lab 12/25/24 22:04 Completed UA [Urinalysis and Microscopic] Stat Lab 12/26/24 00:05 Completed UDS [Drug Screen,Urine] Stat Lab 12/26/24 00:05 Completed Blood Culture Stat Micro 12/26/24 00:05 Results VBG [Venous Blood Gas] Stat RT 12/25/24 00:05 Completed EKG Request [ECG Request] Stat Y 12/25/24 22:31 Ordered Medical Decision Narrative: Patient is a 49-year-old female who presented to the emergency department from [facility] with altered mental status. On arrival, patient was mildly tachycardic, afebrile, borderline hypotensive, mildly tachycardic. Differential includes but not limited to: Overdose, intracranial pathology, pulmonary embolism, intra-abdominal process, sepsis, amongst others. Patient's labs were reviewed and interpreted by myself: CBC showed leukocytosis of 15, hemoglobin was stable. INR was normal. CMP was unremarkable except for mildly elevated glucose. Initial troponin less than 0.01. Lipase was normal. UA showed no evidence of infection. EKG was reviewed and interpreted by myself and showed normal sinus rhythm at [address] or T wave changes concerning for ischemia no QTc prolongation. CT head was reviewed and interpreted by myself and showed no acute intracranial pathology. CT chest and CT abdomen reviewed and interpreted by myself and showed no acute pathology. Patient was given IV fluids. On further reassessment, patient was more alert patient was alert and oriented x 3 but still very sleepy quickly falling asleep after questions. Patient was signed out to the oncoming provider pending further reassessment and likely discharge home once awake and alert likely secondary to medications given just prior to arrival. Tod HUANG: I assumed care of the patient at the time of handoff from the prior provider. After extensive period of observation, patient was able to wake up, eat drink, was neurologically normal and was ultimately discharged in stable condition. Presentation is most consistent with medication side effect from her nighttime medications. Critical Care <Dorota Salazar, DO - Last Filed: 12/26/24 01:49> Critical Care Time Critical Care Time: No
[2024-12-25 22:30] VITALS: BP 103/59; PULSE 100; RESP 29; O2SAT 100
--- NOTE | 2024-12-25 22:31 | CT_ITS ---
PROCEDURE INFORMATION: Exam: CT Head Without Contrast Exam date and time: 12/25/2024 11:10 PM Age: 49 years old Clinical indication: Altered mental status/memory loss; Additional info: AMS TECHNIQUE: Imaging protocol: Computed tomography of the head without contrast. Radiation optimization: All CT scans at this facility use at least one of these dose optimization techniques: automated exposure control; mA and/or kV adjustment per patient size (includes targeted exams where dose is matched to clinical indication); or iterative reconstruction. COMPARISON: No relevant prior studies available. FINDINGS: Brain: Normal. No hemorrhage. Unremarkable white matter. No mass effect. Cerebral ventricles: No ventriculomegaly. Paranasal sinuses: Visualized sinuses are unremarkable. No fluid levels. Mastoid air cells: Visualized mastoid air cells are well aerated. Bones: Unremarkable. No acute fracture. Soft tissues: Unremarkable. IMPRESSION: No acute intracranial abnormality.
--- NOTE | 2024-12-25 22:34 | CT_ITS ---
PROCEDURE INFORMATION: Exam: CTA Chest With Contrast Exam date and time: 12/25/2024 11:12 PM Age: 49 years old Clinical indication: Other: Hypoxic TECHNIQUE: Imaging protocol: Computed tomographic angiography of the chest with contrast. Exam focused on the arteries. 3D rendering (Not supervised by radiologist): MIP and/or 3D reconstructed images were created by the technologist. Radiation optimization: All CT scans at this facility use at least one of these dose optimization techniques: automated exposure control; mA and/or kV adjustment per patient size (includes targeted exams where dose is matched to clinical indication); or iterative reconstruction. Contrast material: ISO 370; Contrast volume: 70 ml; Contrast route: INTRAVENOUS (IV); COMPARISON: CR XR CHEST PORTABLE 01/18/2021 9:47 AM FINDINGS: Pulmonary arteries: Normal. No pulmonary emboli. Aorta: Unremarkable. No aortic aneurysm. No aortic dissection. Lungs: Bibasilar atelectasis. 1.4 cm nodule in the right middle lobe. Pleural spaces: Unremarkable. No pneumothorax. No pleural effusion. Heart: Unremarkable. No cardiomegaly. No pericardial effusion. Lymph nodes: Unremarkable. No enlarged lymph nodes. Bones/joints: Unremarkable. No acute fracture. Soft tissues: Unremarkable. IMPRESSION: 1. No acute findings. 2. 1.4 cm nodule in the right middle lobe. For both low risk and high risk patients, consider CT Chest at 3 months, PET/CT, or biopsy (Reference: Kunal). REFERENCES: Kunal Lindsey et al. Guidelines for Management of Incidental Pulmonary Nodules Detected on CT Images: From the Fleischner Society 2017. Radiology. 2017;284(1):228-243.
--- NOTE | 2024-12-25 22:34 | CT_ITS ---
PROCEDURE INFORMATION: Exam: CT Abdomen And Pelvis With Contrast Exam date and time: 12/25/2024 11:12 PM Age: 49 years old Clinical indication: Other: Hypotensive TECHNIQUE: Imaging protocol: Computed tomography of the abdomen and pelvis with contrast. 3D rendering (Not supervised by radiologist): MIP and/or 3D reconstructed images were created by the technologist. Radiation optimization: All CT scans at this facility use at least one of these dose optimization techniques: automated exposure control; mA and/or kV adjustment per patient size (includes targeted exams where dose is matched to clinical indication); or iterative reconstruction. Contrast material: ISOVUE; Contrast volume: 70 ml; Contrast route: IV; COMPARISON: CT ABDOMEN PELVIS W CON 12/25/2024 11:12 PM FINDINGS: Liver: Normal. No mass. Gallbladder and biliary ducts: Normal. No calcified stones. No ductal dilation. Pancreas: Normal. No ductal dilation. Spleen: Normal. No splenomegaly. Adrenal glands: Normal. No mass. Kidneys and ureters: Normal. No hydronephrosis. Stomach and bowel: Moderate constipation. Appendix: No evidence of appendicitis. Intraperitoneal space: Unremarkable. No free air. No significant fluid collection. Vasculature: Unremarkable. No abdominal aortic aneurysm. Lymph nodes: Unremarkable. No enlarged lymph nodes. Urinary bladder: Unremarkable as visualized. Reproductive: Unremarkable as visualized. Bones/joints: Unremarkable. No acute fracture. Soft tissues: Unremarkable. IMPRESSION: 1. No acute findings. 2. Moderate constipation.
[2024-12-25 22:45] LABS: Hematocrit 36.7 % (37.0-47.0); Hemoglobin 12.0 g/dL (12.2-16.2); Immature Granulocytes % 1.1 %; Mean Corpuscular HGB Conc 32.7 g/dL (31.8-35.4); Mean Corpuscular Hemoglobin 28.6 pg (27.0-31.2); Mean Corpuscular Volume 87.6 fl (81-99); Nucleated Red Blood Cells % 0 %; Platelet Count 238 K/mm3 (142-424); Red Blood Count 4.19 M/mm3 (4.20-5.40); Red Cell Distribution Width-SD 44.0 fL; White Blood Count 15.2 K/mm3 (4.8-10.8)
--- OUTSIDE RECORDS SUMMARY | 2024-12-25 22:47 | XMS_ITS | Encounter Summary ---
Author Organization Healthcare Address [address] [id number] Care Team Providers Care Lime Filter Operator Name Role Phone Mani Bal MD Primary Care Provider [phone] Encounter Details Date Type Department Care Team (Late st Contact Info) Description 01/04/2022 Outside Procedure [address] [address] Provider, External Social History Tobacco Use Types Packs/Day Years Used Date Smoking Tobacco: Every Day Cigarettes 0.8 36.7 Started: 03/27/1988 Smokeless Tobacco: Never Comments:08/19/21: Currently smoking 7-8 cigarretes daily and actively trying to quit. Alcohol Use Standard Drinks/Week Comments Never 0 (1 standard drink = 0.6 oz pur e alcohol) PHQ-2 Answer Date Recorded Patient Health Questionnaire-2 Score 1 12/01/2021 Comments Unknown Sex and Gender Information Value Date Recorded Sex Assigned at Female 04/01/2021 11:48 AM EST Legal Sex Female 8:14 PM EDT Gender Identity Female 04/01/2021 11:48 AM EST Sexual Orientation Not on file COVID-19 Exposure Response Date Recorded In the last 10 days, have yo u been in contact with someone who was confirmed or suspected to have Coronavirus/COVID-19? No / Unsure 01/03/2022 9:37 AM EDT documented as of this encounter Plan of Treatment Not on file documented as of this encounter Procedures Procedure Name Priority Date/Time Associated Diagnosis Comments EGD 01/04/2022 12:52 PM EDT documented in this encounter Results * EGD (01/04/2022 12:52 PM EDT) Anatomical Region Laterality Modality Endoscopy 01/04/2022 12:1 0 PM EDT Impressions 01/04/2022 12:52 PM EDT Please see media tab for the result. Information added by interface. Narrative Procedure Note Miquel Montez MD - 01/04/2022 IMPRESSION: Please see media tab for the result. Information added by interface. us External Provider GI PROCEDURE ORDERABLES Final Result documented in this encounter Visit Diagnoses Not on filedocumented in this encounter Additional Health Concerns Assessment Noted Time A fall risk assessment has been complete d for the patient 12/01/2021 1:27 PM EDT documented as of this encounter Care Teams Lime Filter Operator Relationship Specialty Start Date End Date Mani Bal MD [address] [place] [address] PCP - General 03/29/21 documented as of this encounter
--- OUTSIDE RECORDS SUMMARY | 2024-12-25 22:47 | XMS_ITS | Encounter Summary ---
Author Organization Healthcare Address [address] [id number] Care Team Providers Care Client Application Support Specialist Name Role Phone Mani Bal MD Primary Care Provider [phone] Encounter Details Date Type Department Care Team (Late st Contact Info) Description 01/05/2022 Lab Requisition [facility] [address] [place] [address] Miquel Montez MD [address] [facility] [address] [place] [address] Diarrhea, unspecified; Nausea with vomiting, unspecified Social History Tobacco Use Types Packs/Day Years [...] Procedure Name Priority Date/Time Associated Diagnosis Comments SURGICAL PATHOLOGY EXAM Routine 01/04/2022 Diarrhea, unspecified Nausea with vomiting, unspecified documented in this encounter Results * Surgical Pathology Exam (01/04/2022) Case Report Surgical Pathology Case: [id number] Authorizing Provider: Miquel Montez MD Collected: 01/04/2022 Ordering Location: [facility] Received: 01/05/2022 2135 Pathologist: Jina Noble MD Specimens: A) - Duodenum, Duodenum bx B) - Stomach, Gastric bx C) - Colon, Random colon bx D) - Rectum, Rectal polyp x 2 2 3:53 PM EDT [facility] Final Diagnosis A. SMALL INTESTINE, DUODENUM, BIOPSY: - NO PATHOLOGIC ABNORMALITIES. - NO EVIDENCE OF CELIAC DISEASE. B. STOMACH, BIOPSY: - CHRONIC GASTRITIS (SEE COMMENT). - NO EVIDENCE OF INTESTINAL METAPLASIA OR ATROPHY. C. LARGE INTESTINE, RANDOM COLON, BIOPSY: - NO PATHOLOGIC ABNORMALITIES. D. RECTUM, BIOPSY: - HYPERPLASTIC POLYP. 2 3:53 PM EDT [facility] at 1553 EDT Comment Warthin-Starry stain for H. pylori organisms is negative and immunohistochemic al stain for H. pylori organisms is also negative for unequivocal immunoreaction. 2 3:53 PM EDT [facility] Clinical Information R19.7 - Diarrhea, unspecified [ICD-10-CM] R11.2 - Nausea with vomiting, unspecified [ICD-10-CM] Patchy congested mucosa was found in the gastric body. The examined duodenum was normal. Two sessile polyps were found in the rectum. The polyps were 2 to 3 mm in size. 2 3:53 PM EDT [facility] Special and Immunohistochemical Stains Special Stain: B1-3 Warthin-Starry Negative IHC: B1-2 H-Pylori Negative for unequivocal positivity All controls show appropriate reactivity. All immunohistochemis try, in situ hybridization, and histochemical tests were developed by and are performed at the [facility], [address] [place] [address]. All tests reported here, except those addressing HER2 (breast) and PD-L1 expression as predictive markers, have not been cleared by or approved by the US Food and Drug Administration (FDA). The FDA has determined that such clearance or approval is not necessary. The laboratory is regulated under CLIA as qualified to perform high-complexity testing. The tests are used for clinical purposes. They should not be regarded as investigational or for research. This assay has not been validated on decalcified tissues. Results should be interpreted with caution given the likelihood of false negativity on decalcified specimens. 3:53 PM EDT [facility] Gross Description A. DUODENUM BX The specimen is received in formalin labeled duodenum BX , and consists of three pink-marcus soft tissue fragments ranging from 0.2-0.3 cm in greatest dimension. Entirely submitted in cassette A1. Mihaela L Leobardo B. GASTRIC BX The specimen is received in formalin labeled gastric BX , and consists of four pink-marcus soft tissue fragments ranging from 0.2-0.3 cm in greatest dimension. Entirely submitted in cassette B 1. Mihaela L Leobardo C. RANDOM COLON BX The specimen is received in formalin labeled random colon BX , and consists of four white-marcus soft tissue fragments ranging from 0.2-0.3 cm in greatest dimension. Entirely submitted in cassette C 1. Mihaela L Leobardo D. RECTAL POLYP X 2 The specimen is received in formalin labeled rectal polyp 2, and consists of a white-marcus soft tissue fragment measuring 0.3 cm in greatest dimension. Entirely submitted in cassette D 1. Mihaela L Leobardo 3:53 PM EDT [facility] Note: A resident was involved in the service. I attest I examined the relevant preparations for the specimens and confirmed the diagnosis or interpretation. 3:53 PM EDT [facility] Tissue Duodenal structure / Unknown 01/04/2022 01/05/2022 1:09 PM EDT Tissue specimen (specimen) Stomach structure / Unknown 01/04/2022 01/05/2022 1:09 PM EDT Tissue specimen (specimen) Colon structure / Unknown 01/04/2022 01/05/2022 1:09 PM EDT Tissue specimen (specimen) Rectum structure / Unknown 01/04/2022 01/05/2022 1:09 PM EDT us Miquel Montez MD LAB PATHOLOGY ORDERABLES Final Result [facility] [address] [place] [address] documented in this encounter Visit Diagnoses Diagnosis Diarrhea, unspecified Nausea with vomiting, unspecified documented in this encounter Additional Health Concerns Assessment Noted Time A fall risk assessment has been complete d for the patient 12/01/2021 1:27 PM EDT documented as of this encounter Care Teams Client Application Support Specialist Relationship Specialty Start Date End Date Mani Bal MD [address] [place] [address] PCP - General 03/29/21 documented as of this encounter
--- OUTSIDE RECORDS SUMMARY | 2024-12-25 22:47 | XMS_ITS | Encounter Summary ---
Author Organization Healthcare Address [address] [id number] Care Team Providers Care Change Management Lead Name Role Phone Mani Bal MD Primary Care Provider Encounter Details Date Type Department Care Team (Late st Contact Info) Description 01/04/2022 Outside Procedure [address] [address] Provider, External Social History Tobacco [...] Procedure Name Priority Date/Time Associated Diagnosis Comments COLONOSCOPY 01/04/2022 12:57 PM EDT documented in this encounter Results * Colonoscopy (01/04/2022 12:57 PM EDT) Anatomical Region Laterality Modality Endoscopy 01/04/2022 12:2 0 PM EDT Impressions 01/04/2022 12:57 PM EDT Please see media tab for [...] documented as of this encounter Care Teams Change Management Lead Relationship Specialty Start Date End Date Mani Bal MD [address] [place] [address] PCP - General 03/29/21 documented as of this encounter
--- OUTSIDE RECORDS SUMMARY | 2024-12-25 22:47 | XMS_ITS | Clinical Summary ---
Author Organization [facility] Address [address] [place] [address] Phone Care Team Providers Care Book Shelver Name Role Phone Unavailable Primary Care Provider Unavailabl e Allergies No known active allergies Medications * This document contains information received from the source organization and may not represent a complete record from that organization. mirtazapine (REMERON) 45 mg Oral Tablet GIVE 1 TABLET BY MOUTH AT BEDTIME 30 Tablet 5 12/04/2023 Active haloperidoL (HALDOL) 10 mg Oral Tablet GIVE 1 TABLET BY MOUTH TWICE DAILY 60 Tablet 11 02/12/2024 Active Active Problems Problem Noted Date Diagnosed Date Mood insomnia 09/04/2023 Anxious personality disorder 09/04/2023 PTSD (post-traumatic stress disorder) 03/31/2017 Schizophrenia, undifferentiated 03/31/2017 Bipolar disorder, most recent episode hypomanic 03/31/2017 Resolved Problems Problem Noted Date Diagnosed Date Resolved Date Nightmares 02/06/2020 09/04/2023 Bipolar disorder, most recent episode manic 01/05/2019 09/04/2023 Bipolar affective disorder, currently manic, mild 12/04/2018 09/04/2023 Bipolar disord, currently in remis, most recent episode unsp 08/31/2018 09/04/2023 Primary insomnia 05/30/2017 09/04/2023 Medication monitoring encounter 05/03/2017 09/04/2023 Bipolar affective disorder, mixed, mild 05/03/2017 09/04/2023 FOSTER (generalized anxiety disorder) 03/31/2017 09/04/2023 Social History Tobacco Use Types Packs/Day Years Used Date Smoking Tobacco: Never Assessed Comments Unknown Sex and Gender Information Value Date Recorded Sex Assigned at Not on file Legal Sex Female 3:33 PM EST Gender Identity Not on file Sexual Orientation Not on file Plan of Treatment Health Maintenance Due Date Last Done Comments Wellness Exam Medicare 1976 DTaP/TDaP/Td (1 - Tdap) 1992 Hepatitis B Vaccine (1 of 3 - 19+ 3-dose series) 1992 Cervical Cancer Screening 1994 Pap Smear 1994 HPV/Pap Cotest 2003 Breast Cancer Screening 2013 Cologuard 2018 FIT 2018 Sigmoidoscopy 2018 Virtual Colonography 2018 Pneumococcal Vaccine 50+ (1 of 1 - PCV) 2023 Zoster (1 of 2) 2023 COVID-19 Vaccine (1 - 2023-2 5 season) 2024 Influenza Vaccine (#1) 2024 Colon Cancer Screening 01/05/2032 Colonoscopy 01/05/2032 01/04/2022 Meningococcal B Vaccine Aged Out No l onger eligible based on patient's age to complete this topic Insurance [place]ARE [place] A AND B
--- OUTSIDE RECORDS SUMMARY | 2024-12-25 22:47 | XMS_ITS | Clinical Summary ---
Author Organization Healthcare Address [facility] [address] [id number] Care Team Providers Care Silk Screener Name Role Phone Mani Bal MD Primary Care Provider Allergies Active Allergy Reactions Criticality Noted Date Comments Hydrocodone Itching Medium 09/23/2020 Penicillin G Hives Medium 09/23/2020 Medications atorvastatin (Lipitor) 20 MG tablet Take 20 mg by mouth 1 (one) time each day. Active divalproex (Depakote) 500 MG EC tablet Take 500 mg by mouth 3 (three) times a day. Do not crush, chew, or split. Active haloperidol (Haldol) 5 MG tablet Take 5 mg by mouth 4 (four) times a day. Active paliperidone (Invega) 1.5 MG 24 hr tablet Take 1.5 mg by mouth 1 (one) time each day in the morning. Do not crush, chew, or split. Active calcium-vitamin D 500-200 MG-UNIT tablet Take 1 tablet by mouth 1 (one) time each day. Active prazosin (Minipress) 2 MG capsule Take 2 mg by mouth every night. Active QUEtiapine (SEROquel) 50 MG tablet Take 50 mg by mouth every night. Active QUEtiapine (SEROquel) 100 MG tablet Take by mouth every night. Active levothyroxine (Synthroid, Levoxyl) 200 MCG tablet Take 200 mcg by mouth 1 (one) time each day before breakfast. Active albuterol 108 (90 Base) MCG/ACT inhaler Inhale 2 puffs every 6 (six) hours if needed for wheezing or shortness of breath (cough). 18 g 3 1 Active oxybutynin XL (Ditropan-XL) 10 MG 24 hr tablet Take 10 mg by mouth 1 (one) time each day. Do not crush, chew, or split. Active buPROPion SR (Wellbutrin SR) 150 MG 12 hr tablet Take 150 mg by mouth 2 (two) times a day. 1 Active Fluticasone Furoate-Vilante rol (BREO ELLIPTA IN) Inhale 1 puff. Act brock famotidine (Pepcid) 20 MG tabletIndicatio ns:Gastroesopha geal reflux disease, unspecified whether esophagitis present Take 1 tablet (20 mg total) by mouth every night. 30 tablet 11 2 Active omeprazole (PriLOSEC) [address] capsule Take 1 capsule (40 mg total) by mouth 2 (two) times a day. Do not crush or chew. Take 30 minutes prior to lunch. 60 capsule 3 2 Active nicotine (Nicotrol) 10 MG inhalerIndicati ons:Encounter for tobacco use cessation counseling Puff continuously for 5-20 minutes at a time. Do not inhale completely into lungs. Replace cartridge after 20 minutes of use. May use up to 16 cartridges daily. 336 each 2 3 Active Active Problems Problem Noted Date Diagnosed Date Hypothyroidism 09/23/2020 Emphysema lung 09/23/2020 Bipolar disorder, most recent episode manic 12/25 PTSD (post-traumatic stress disorder) 03/31/2017 Schizophrenia, undifferentiated 03/31/2017 Social History Tobacco Use Types Packs/Day Years Used Date Smoking Tobacco: Every Day Cigarettes 1 36.7 Started: 03/27/1988 Smokeless Tobacco: Never Tobacco Cessation:Ready to Q uit: Yes; Counseling Given: Yes Alcohol Use Standard Drinks/Week Comments Never 0 (1 standard drink = 0.6 oz pur e alcohol) PHQ-2 Answer Date Recorded Patient Health Questionnaire-2 Score 0 04/06/2022 PHQ-2A Answer Date Recorded Patient Health Questionnaire-2 Score 0 04/06/2022 Comments Unknown Sex and Gender Information Value Date Recorded Sex Assigned at Female 04/01/2021 11:48 AM EST Legal Sex Female 8:14 PM EDT Gender Identity Female 04/01/2021 11:48 AM EST Sexual Orientation Not on file Last Filed Vital Signs Vital Sign Reading Time Taken Comments Blood Pressure 119/81 04/06/2022 10:31 AM EST Pulse 107 04/06/2022 10:31 AM EST Temperature 36.2 C (97.1 F) 04/06/2022 10:31 AM EST Respiratory Rate 18 04/06/2022 10:31 AM EST Oxygen Saturation 94% 04/06/2022 10:31 AM EST Inhaled Oxygen Concentration - - Weight 88.5 kg (195 lb 1.7 oz) 04/06/2022 10:31 AM EST Height 165.1 cm (5' 5 ) 04/06/2022 10:31 AM EST Body Mass Index 32.47 04/06/2022 10:31 AM EST Plan of Treatment Health Maintenance Due Date Last Done Comments [facility]-HIV Screening 1973 [facility]-Hepatitis C Screening 1973 [facility]-Medicare Annual Wellness (AWV) 1973 [facility]-/Child/Adol SDOH Screenings 1973 [facility]- SDOH Screenings 1991 [facility]-Adult SDOH Screenings 1991 [facility]-DTaP,Tdap,and Td Vaccines (1 - Tdap) 1992 [facility]-Hepatitis B Vaccines (1 of 3 - 19+ 3-dose series) 1992 [facility]-Pneumococcal Vaccine: 50+ Years (1 of 2 - PCV) 1992 [facility]-Pap Smear 1994 [facility]-Cervical Cancer Screening 2003 [facility]-HPV/Cotest 2003 CT Colonography 2018 FIT-DNA 2018 FIT 2018 FOBT 2018 Sigmoidoscopy 2018 [facility]-Breast Cancer Screening 2023 [facility]-Zoster Vaccines (1 of 2) 2023 [facility]-Depression Screening 04/06/2023 04/06/2022, 09/0 09/2021 [id number] Vaccine ( season) 2024 01/25/2021, 04/25/2020, 04/04/2020 [facility]-Influenza Vaccine (#1) 11/25/202401/27, 01/27/2020, 02/12/2019, Additional history exists Colonoscopy 01/05/2032 01/04/2022 [facility]-Colorectal Cancer Screening 01/05/2032 [facility]-Hepatitis A Vaccines Aged Out 02/09/2018 No longer eligible based on patient's age to complete this topic [facility]-Obesity Intervention Completed 023, 02/23/2022, 12/01/2021 HPV Vaccines Aged Out No longer eligi ble based on patient's age to complete this topic [facility]-HIB Vaccines Aged Out No longer e ligible based on patient's age to complete this topic [facility]-IPV Vaccines Aged Out No longer e ligible based on patient's age to complete this topic [facility]-Rotavirus Vaccines Aged Out No lo nger eligible based on patient's age to complete this topic Procedures Procedure Name Priority Date/Time Associated Diagnosis Comments COLONOSCOPY 01/04/2022 12:57 PM EDT from Last 3 Months or Most Recently Relevant to Health Maintenance Results * Colonoscopy (01/04/2022 12:57 PM EDT) Anatomical Region Laterality Modality Endoscopy 01/04/2022 12:2 0 PM EDT Impressions 01/04/2022 12:57 PM EDT Please see media tab for the result. Information added by interface. Narrative Procedure Note Miquel Montez MD - 01/04/2022 IMPRESSION: Please see media tab for the result. Information added by interface. us External Provider GI PROCEDURE ORDERABLES Final Result from Last 3 Months or Most Recently Relevant to Health Maintenance Insurance [employer] [facility] [place] [address] Advance Directives Documents on File Type Date Recorded Patient Aix Architect Expl anation Advance Directives and Living Will 04/13/2022 11:20 AM 2022-04-05 MARISABEL [email or web address] Healthcare Agents on File Name Relationship Healthcare Agent Relationship Communication Petra Rice Surrogate First Alternate Health Care Agent Care Teams Silk Screener Relationship Specialty Start Date End Date Mani Bal MD [address] [place] [id number] PCP - General 03/29/21
[2024-12-25 22:50] LABS: INR 1.04 (0.9-1.1); Prothrombin Time 11.5 seconds (10.1-12.5)
[2024-12-25 22:54] LABS: Alanine Aminotransferase 29 U/L (12-78); Albumin Level 3.6 g/dl (3.5-5.0); Albumin/Globulin Ratio 1.4 (1.1-1.8); Alkaline Phosphatase 136 U/L (38-126); Anion Gap 13.6 mEq/L (5-15); Aspartate Amino Transferase 21 U/L (14-36); Bilirubin,Total 0.5 mg/dl (0.2-1.3); Blood Urea Nitrogen 11 mg/dl (7-17); Calcium 8.9 mg/dl (8.4-10.2); Carbon Dioxide 24 mmol/L (22.0-30.0); Chloride 102 mmol/L (98-107); Creatinine Clearance Estimated 109 mL/min (50-200); Creatinine,Serum 0.70 mg/dl (0.52-1.04); Estimated Glomerular Filt Rate 88 ml/min (>60); GFR (African American) 107 ML/MIN (>60); Globulin 2.6 g/dL (1.3-3.2); Glucose 233 mg/dl (74-100); Lipase 38 U/L (23-300); Potassium 3.6 mmoL/L (3.5-5.1); Sodium 136 mmol/L (136-145); Total Protein,Serum 6.2 g/dl (6.3-8.2)
[2024-12-25 23:05] LABS: Troponin I < 0.01 ng/ml (0.00-0.034)
[2024-12-25] MEDS: IOPAMIDOL-370 (76%);100ML BOTTLE 70 ML IV (23:17)
[2024-12-25] MEDS: SODIUM CHLORIDE 0.9% 10ML SYR (RAD ONLY) 10 ML IV (23:17)
[2024-12-25] MEDS: 0.9 % SODIUM CHLORIDE 50 ML VIAL IV (23:17)
[2024-12-25] MEDS: 0.9 % SODIUM CHLORIDE 1000ML 1,000 ML 999 ML IV (23:48)
[2024-12-26 00:12] LABS: Microscopic, Urine URINE MICROSCOPIC (MICROSCOPIC)
[2024-12-26 00:14] LABS: Lactate Venous 1.6 mmol/L (0.4-2.0); VBG HCO3 24.2 mmol/L (23-30); VBG PCO2 40.6 mmol/L (35-51); VBG PH 7.39 mmol/L (7.31-7.41); VBG PO2 95.0 mmol/L (28-40)
[2024-12-26 00:17] LABS: Bilirubin,Urine Negative (Negative); Color,Urine YELLOW (Yellow); Glucose,Urine (UA) 3+ (Negative); Ketones,Urine Negative (Negative); Leukocyte Esterase,Urine Negative (Negative); PH,Urine 6.0 (5.0-8.5); Protein,Urine Negative (Negative); Specific Gravity, Urine 1.010 (1.005-1.030); Urobilinogen,Urine 0.2 EU/dl (0.2)
[2024-12-26 00:31] LABS: Squamous Epithelial Cell,Urine Occasional #/hpf (0-5)
[2024-12-26 00:35] LABS: Barbiturates Screen,Urine Negative ng/ml (<200); Benzodiazepines Screen,Urine Negative ng/ml (<200)
[2024-12-26 00:36] LABS: Amphetamine/Metha Screen,Urine Negative ng/ml (<1000)
[2024-12-26 00:38] LABS: Methadone Screen,Urine Negative ng/ml (<300)
[2024-12-26 00:40] LABS: Phencyclidine Screen,Urine Negative ng/ml (<25)
[2024-12-26 00:41] LABS: Opiate Screen,Urine Negative ng/ml (<300)
--- NOTE | 2024-12-26 01:34 | ECG_ITS ---
APPROVED REPORT Exam: Resting ECG HR:98 bpm ECG Measurements Heart Rate 98 AXES KS 127 P 64 QRSd 87 QRS 96 QT 365 T 51 QTc 421 Conclusion SINUS RHYTHM BORDERLINE RIGHT AXIS DEVIATION [QRS AXIS > 90] BORDERLINE ECG UNCONFIRMED REPORT Electronically signed by : ANNEL MCKEON, 12/26/2024 23:04:05
[2024-12-26 02:38] LABS: Acetaminophen < 10 ug/ml (10-30); Salicylate < 1.0 mg/dL (2.0-20.0)
[2024-12-26 07:10] VITALS: BP 139/74; PULSE 92; RESP 14; TEMP 36.6; O2SAT 99
--- NOTE | 2024-12-26 07:20 | PC.NURSE ---
called [facility] for patient transport, was told they dont have a vehicle for transport, asked if we needed to contact their lpn care manager they said lpn care manager said they dont provide transportation for any patients
--- NOTE | 2024-12-26 08:02 | PC.NURSE ---
judy called for patient
[2024-12-26 08:11] VITALS: BP 142/77; PULSE 99; RESP 16; TEMP 36.6; O2SAT 97
== END 2024-12-26 08:12 | disposition home or self-care (01) ==
PROVIDERS: Student in an Organized Health Care Education/Training Program; Emergency Provider Emergency Medicine
DX: R41.82 Altered mental status, unspecified (principal)
CPT/HCPCS: 70450; 71275; 74177; 80053; 80307; 80329; 81001; 82803; 83690; 84484; 85025; 85610; 87040; 93005; 96360; 99285; J7030; Q9967